=== PATIENT | female | born 1960 | race Asian ===

== ENCOUNTER 2016-11-12 21:51 | Emergency (ER) | payer BC, OTHER ==
[~2016-11-12] VITALS: Ht 152.4 cm; Wt 56.2 kg
[2016-11-12] MEDS ORDERED: LISI-167 PO (23:20)
[2016-11-13 00:33] LABS: BLOOD UREA NITROGEN 22 mg/dL (7-18)
[2016-11-13 00:38] LABS: IS PT STATUS REG ER OR PRE ER? YES
[2016-11-13 01:40] VITALS: BP 120/78
== END 2016-11-13 01:42 | disposition home or self-care (01) ==
LOC: ED 11-13 01:36
DX: J20.9 Acute bronchitis, unspecified (principal); B96.89 Other specified bacterial agents as the cause of diseases classified elsewhere; I10 Essential (primary) hypertension; Z90.49 Acquired absence of other specified parts of digestive tract
CPT/HCPCS: 36415; 71020; 80048; 82040; 84484; 85025; 93005

== ENCOUNTER → 2018-08-03 | Outpatient (CLI) | payer BC ==
[~2018-08-03] MED LIST: LISI-167 PO; LOSA25TA25 PO; MULT-516 PO
[2018-08-03 08:48] LABS: BASOPHILS # (AUTO) 0.04 x10^3/uL (0-0.1); BASOPHILS % (AUTO) 1 % (0-1); EOSINOPHILS # (AUTO) 0.37 x10^3/uL (0-0.4); EOSINOPHILS % (AUTO) 6 % (1-7); LYMPHOCYTES # (AUTO) 1.52 x10^3/uL (1-3.4); LYMPHOCYTES % (AUTO) 24 % (22-44); MD NO; MEAN CORPUSCULAR HEMOGLOBIN 30.3 pg (27.0-34.8); MEAN CORPUSCULAR HGB CONC 33.3 g/dL (32.4-35.8); MEAN CORPUSCULAR VOLUME 90.8 fL (80-100); MEAN PLATELET VOLUME 9.2 fL (7.4-10.4); MONOCYTES # (AUTO) 0.44 x10^3/uL (0.2-0.8); MONOCYTES % (AUTO) 7 % (2-9); NEUTROPHILS # (AUTO) 4.07 x10^3/uL (1.8-6.8); NEUTROPHILS % (AUTO) 63 % (42-75); PLATELET COUNT 292 x10^3/uL (130-400); RED BLOOD COUNT 4.64 x10^6/uL (3.82-5.3); RED CELL DISTRIBUTION WIDTH 12.8 % (9.6-15.2)
[2018-08-03 08:56] LABS: ALANINE AMINOTRANSFERASE 25 U/L (12-78); ALBUMIN 3.8 g/dL (3.4-5.0); ANION GAP 6 mmol/L (5-15); CALCIUM 8.8 mg/dL (8.5-10.1); CHLORIDE 108 mmol/L (98-107); CREATININE 0.86 mg/dL (0.55-1.02)
[2018-08-03 08:59] LABS: ALKALINE PHOSPHATASE 81 U/L (45-117); BILIRUBIN,TOTAL 0.2 mg/dL (0.2-1.0); TOTAL PROTEIN 7.4 g/dL (6.4-8.2)
== END | disposition home or self-care (01) ==
LOC: STAR 07:45
PROVIDERS: ATTEND Obstetrics & Gynecology Female Pelvic Medicine and Reconstructive Surgery
DX: Z01.818 Encounter for other preprocedural examination (principal); N81.4 Uterovaginal prolapse, unspecified
CPT/HCPCS: 36415; 71046; 80053; 85025; 93005

== ENCOUNTER 2018-08-20 05:43 | Day surgery (SDC) | payer BC ==
[~2018-08-20] VITALS: Ht 152.4 cm; Wt 57.0 kg
[2018-08-20 06:26] VITALS: BP 128/86
[2018-08-20] MEDS ORDERED: FENTANYL PF 250 MCG/5ML ONE ×2 (06:47→08:14)
[2018-08-20] MEDS ORDERED: MIDAZOLAM 1 MG/ML, 2ML ONE (06:47)
[2018-08-20] MEDS ORDERED: ACETAMINOPHEN 500 MG TABLET ONE (06:53)
[2018-08-20] MEDS ORDERED: GABAPENTIN 300 MG CAPSULE ONE (06:53)
[2018-08-20] MEDS ORDERED: LACTATED RINGERS 1,000 ML IV SCH ×2 (06:55→10:03)
[2018-08-20] MEDS ORDERED: SODIUM CHLORIDE 0.9% PF 10ML ONE (06:55)
[2018-08-20] MEDS ORDERED: CEFOTETAN 2 GM ONE (06:55)
[2018-08-20] MEDS ORDERED: PROPOFOL 10 MG/ML, 20ML ONE (06:56)
[2018-08-20] MEDS ORDERED: ROCURONIUM 10MG/ML,5ML ONE (06:56)
[2018-08-20] MEDS ORDERED: DEXAMETHASONE 4 MG/ML, 1ML ONE (06:56)
[2018-08-20] MEDS ORDERED: ONDANSETRON 2MG/ML, 2ML ONE ×2 (06:56→10:25)
[2018-08-20] MEDS ORDERED: NEOSTIGMINE 1 MG/ML, 10ML ONE (06:56)
[2018-08-20] MEDS ORDERED: GLYCOPYRROLATE 0.2MG/1ML, 5ML ONE (06:56)
[2018-08-20] MEDS ORDERED: GABAPENTIN 300 MG CAPSULE PO ONE (07:00)
[2018-08-20] MEDS ORDERED: ACETAMINOPHEN 500 MG TABLET PO ONE (07:00)
[2018-08-20] MEDS ORDERED: THROMBIN 5,000 UNIT VIAL TP ONE (07:03)
[2018-08-20] MEDS ORDERED: INDIGO CARMINE 0.8%, 5ML ONE (07:03)
[2018-08-20] MEDS ORDERED: EPINEPHRINE 1 MG/ML, 1ML ONE (07:03)
[2018-08-20] MEDS ORDERED: BUPIVACAINE/PF 0.25% ONE (07:03)
[2018-08-20] MEDS ORDERED: NEOMY/POLYMYXIN B GU IRR. 1 ML ONE (07:04)
[2018-08-20] MEDS ORDERED: PROMETHAZINE 25 MG/ML, 1ML IM PRN ×2 (07:30)
[2018-08-20] MEDS ORDERED: LABETALOL 5MG/ML, 20ML IV PRN (07:30)
[2018-08-20] MEDS ORDERED: OXYcodone 5 MG/5 ML ORAL.SOL UDC PO PRN (07:30)
[2018-08-20] MEDS ORDERED: PROMETHAZINE 12.5 MG SUPP PR PRN (07:30)
[2018-08-20] MEDS ORDERED: hydrALAzine 20 MG/ML, 1ML IV PRN (07:30)
[2018-08-20] MEDS ORDERED: HYDROmorphone 2 MG/ML, 1ML IVPush PRN (07:30)
[2018-08-20] MEDS ORDERED: PROMETHAZINE 25 MG SUPP PR PRN (07:30)
[2018-08-20] MEDS ORDERED: ONDANSETRON ODT 8 MG PO PRN (07:30)
[2018-08-20] MEDS ORDERED: ONDANSETRON 2MG/ML, 2ML IV PRN (07:30)
[2018-08-20] MEDS ORDERED: MEPERIDINE/PF 25MG/0.5ML IVPush PRN (07:30)
[2018-08-20] MEDS ORDERED: FENTANYL PF 100 MCG/2ML IV PRN (07:30)
[2018-08-20] MEDS ORDERED: PROMETHAZINE 25 MG/ML, 1ML IV PRN (07:30)
[2018-08-20] MEDS ORDERED: MORPHINE SULFATE 4 MG/ML, 1ML IVPush PRN (07:30)
[2018-08-20] MEDS ORDERED: KETOROLAC 30 MG/1 ML ONE (09:21)
[2018-08-20] MEDS ORDERED: OXYcodone 5 MG/5 ML ORAL.SOL UDC ONE (10:14)
[2018-08-20] MEDS ORDERED: IBUPROFEN 600 MG TABLET PO PRN (10:30)
[2018-08-20] MEDS ORDERED: PROMETHAZINE 12.5 MG SUPP PR ONE (10:30)
[2018-08-20] MEDS ORDERED: HYDROcodone/APAP 5/325 TABLET PO PRN (10:30)
[2018-08-20] MEDS ORDERED: ONDANSETRON 2MG/ML, 2ML IVPush PRN (10:30)
== END 2018-08-20 18:30 | disposition home or self-care (01) ==
LOC: OUT 05:43
PROVIDERS: ATTEND Obstetrics & Gynecology Female Pelvic Medicine and Reconstructive Surgery
DX: N81.4 Uterovaginal prolapse, unspecified (principal); N39.3 Stress incontinence (female) (male); N32.81 Overactive bladder; N84.0 Polyp of corpus uteri; I10 Essential (primary) hypertension; F17.210 Nicotine dependence, cigarettes, uncomplicated; Z98.51 Tubal ligation status; Z98.890 Other specified postprocedural states; Z72.89 Other problems related to lifestyle
CPT/HCPCS: 57288; 57425; 58542; 88307; C1771; C1781; J0171; J1100; J1885; J2250; J2405; J2704; J2710; J3010; J3490; J7120; Q0162